=== PATIENT | male | born 1980 | race Caucasian/White ===

== ENCOUNTER 2018-12-05 15:31 | Emergency (ER) | payer SELFPAY ==
--- NOTE | 2018-12-05 16:25 | ED ---
Complex/Multi-Sys Presentation - HPI Summary HPI Summary: A 38 y/o male brought in by [facility] ambulance presents to [facility] with a chief complaint of heat exhaustion today. The patient has been at [employer] yesterday and today and has been out in the sun. He said that he felt OK this morning, but got to hot and had to go into the shade. He says that he had 8-10 beers yesterday and 1/2 of a beer today. He also reports smoking marijuana, but denies any other drugs. He reports some SOB from smoking marijuana, saying that sometimes it is hard to take a breath, and he reports a Hx of asthma. He rates his pain as a 0/10 in severity. He denies any CP, palpitations, vomiting or abdominal pain. He says that he is starting to get back a little bit of energy, but he is still weak. - History Of Current Complaint Chief Complaint: EDExposureHeatCold Time Seen by Provider: 12/05/18 16:04 Hx Obtained From: Patient Onset/Duration: Sudden Onset, Lasting Hours, Still Present Timing: Constant, Hours Severity Currently: None Severity Initially: Mild Location: Negative Character: Unable To Describe Aggravating Factor(s): nothing Alleviating Factor(s): nothing Associated Signs And Symptoms: Positive: SOB. Negative: Chest Pain, Palpitations, Vomiting, Abdominal Pain, Fever - Allergies/Home Medications Allergies/Adverse Reactions: Allergies Allergy/AdvReac Type Severity Reaction Status Date / Time No Known Allergies Allergy Verified 07/23/15 16:53 Home Medications: Home Medications NK [No Home Medications Reported] 12/05/18 [History Confirmed 12/05/18] PMH/Surg Hx/FS Hx/Imm Hx Respiratory History: Reports: Hx Asthma Sensory History: Denies: Hx Deafness EENT History: Denies: Hx Deafness Infectious Disease History: No Infectious Disease History: Denies: Traveled Outside the [place] in Last 30 Days - Family History Known Family History: Positive: None - Social History Alcohol Use: Weekly Alcohol Amount: recently quit Substance Use Type: Reports: Marijuana Substance Use Comment - Amount & Last Used: recently quit Smoking Status (MU): Never Smoked Tobacco Review of Systems Negative: Fever Negative: Palpitations, Chest Pain Positive: Shortness Of Breath Negative: Abdominal Pain, Vomiting Positive: Weakness Psychological: Other - positive: EtOH use out in the sun All Other Systems Reviewed And Are Negative: Yes Physical Exam - Summary Physical Exam Summary: GENERAL: Patient is a well-developed and nourished M who is lying comfortable in the stretcher. Patient is not in any acute respiratory distress. HEAD AND FACE: Normocephalic EYES: PERRLA, EOMI x 2. EARS: Hearing grossly intact. MOUTH: Oropharynx within normal limits. NECK: Supple, trachea is midline, no adenopathy, no JVD, no carotid bruit. CHEST: Symmetric, no tenderness at palpation LUNGS: Clear to auscultation bilaterally. No wheezing or crackles. CVS: Regular rate and rhythm, S1 and S2 present, no murmurs or gallops appreciated. ABDOMEN: Soft, non-tender. Bowel sounds are normal. No abnormal abdominal pulsations. EXTREMITIES: Full ROM in all major joints, no edema, no cyanosis or clubbing. NEURO: Alert and oriented x 3. No acute neurological deficits. Speech is normal and follows commands. SKIN: Dry and warm Triage Information Reviewed: Yes Vital Signs On Initial Exam: Initial Vitals Temp Pulse Resp BP Pulse Ox 99.1 F 92 8 136/80 100 12/05/18 15:43 12/05/18 15:43 12/05/18 15:43 12/05/18 15:43 12/05/18 15:43 Vital Signs Reviewed: Yes Diagnostics - Vital Signs Vital Signs Temp Pulse Resp BP Pulse Ox 12/05/18 15:43 99.1 F 92 8 136/80 100 - Laboratory Result Diagrams: 12/05/18 16:35 12/05/18 16:35 Lab Statement: Any lab studies that have been ordered have been reviewed, and results considered in the medical decision making process. - EKG 16:42 Cardiac Rate: NL - 82 bpm EKG Rhythm: Sinus Rhythm Summary of EKG Findings: EKG at 16:42 showed NSR at 82 bpm, benign early repolarization. Re-Evaluation - Re-Evaluation First Eval Re-Evaluation Time: 19:18 Change: Improved Comment: Pt is feeling much better now. Complex Multi-Symp Course/Dx Course Of Treatment: A 38 y/o male brought in by [facility] ambulance presents to [facility] with a chief complaint of heat exhaustion today. The physical exam was unremarkable. EKG at 16:42 showed NSR at 82 bpm, benign early repolarization. Blood work chemistries urine and toxicology obtained and are WNL. In the ED course the patient was given sodium chloride IV. I discussed results with patient, and he reports feeling better. He is hemodynamically stable and safe for discharge. Strict return precautions given and he will otherwise follow up with his PCP. - Diagnoses Provider Diagnoses: Marijuana use, Malaise, Heat exhaustion Discharge - Sign-Out/Discharge Documenting (check all that apply): Patient Departure - DC Patient Received Moderate/Deep Sedation with Procedure: No - Discharge Plan Condition: Stable Disposition: HOME Patient Education Materials: Heat Exhaustion (DC) Referrals: [facility] [Outside] (1-3 days) Additional Instructions: Follow up with your primary care physician in 1-3 days. RETURN TO THE EMERGENCY DEPARTMENT FOR CHANGING OR WORSENING SYMPTOMS. - Billing Disposition and Condition Condition: STABLE Disposition: Home - Attestation Statements Document Initiated by [place]: Yes Documenting Scribe: Ruy Thomas Provider For Whom Scribe is Documenting (Include Credential): Davidson Pritchett MD Scribe Attestation: IRuy, scribed for Davidson Pritchett MD on 12/06/18 at 1101. Scribe Documentation Reviewed: Yes Provider Attestation: The documentation as recorded by the Ruy hernandez accurately reflects the service I personally performed and the decisions made by , Narcisa Pritchett MD Status of Scribe Document: Viewed
[2018-12-05] MEDS: NS 0.9% 1000 ML** 2,000 ML IV ONE (16:30)
[2018-12-05 16:43] LABS: ABS Eosinophils 0.2 10^3/ul (0-0.6); ABS Lymphocytes 0.8 10^3/ul (1.0-4.8); ABS Monocytes 0.5 10^3/ul (0-0.8); ABS Neutrophils 12.4 10^3/ul (1.5-7.7); Eosinophil % 1.1 %; Hematocrit 43 % (42-52); Hemoglobin 14.5 g/dL (14.0-18.0); Lymphocyte % 6.1 %; Mean Corpuscular HGB Conc 34 g/dL (31-36); Mean Corpuscular Hemoglobin 30 pg (27-31); Mean Corpuscular Volume 90 fL (80-94); Mean Platelet Volume 8.4 fL (7.4-10.4); Platelet Count 217 10^3/uL (150-450); Red Blood Count 4.78 10^6 /uL (4.18-5.48); Red Cell Distribution Width 13 % (10-15); White Blood Count 13.9 10^3/uL (3.5-10.8)
[2018-12-05 17:03] LABS: ALT 17 U/L (7-52); AST 18 U/L (13-39); Albumin 4.5 g/dL (3.2-5.2); Albumin/Globulin Ratio 1.7 (1-3); Alkaline Phosphatase 62 U/L (34-104); Anion Gap 9 mmol/L (2-11); BUN/Creatinine Ratio 12.4 (8-20); Blood Urea Nitrogen 12 mg/dL (6-24); CO2 Carbon Dioxide 23 mmol/L (22-32); Calcium 9.2 mg/dL (8.6-10.3); Chloride 106 mmol/L (101-111); Creatine Kinase 197 U/L (10-223); EGFR Non-African American 87.6 (>60); Globulin 2.6 g/dL (2-4); Glucose 123 mg/dL (70-100); Potassium 3.7 mmol/L (3.5-5.0); Sodium 138 mmol/L (135-145); Total Protein 7.1 g/dL (6.4-8.9)
[2018-12-05 17:07] LABS: Urine Appearance Clear; Urine Bilirubin Negative (Negative); Urine Blood Negative (Negative); Urine Color Yellow; Urine Glucose Negative (Negative); Urine Ketones Negative (Negative); Urine Nitrite Negative (Negative); Urine Protein Negative (Negative); Urine Specific Gravity 1.005 (1.010-1.030); Urine Urobilinogen Negative (Negative)
[2018-12-05 17:17] LABS: Urine Benzodiazepine Screen None Detected (None Detect); Urine Opiates Screen None Detected (None Detect)
[2018-12-05 17:23] LABS: Acetaminophen < 15 mcg/mL; Alcohol < 10 mg/dL (<10); Salicylate < 2.50 mg/dL (<30)
[2018-12-05 17:37] LABS: TSH (Thyroid Stimulating Horm) 2.25 mcIU/mL (0.34-5.60)
[2018-12-05 19:24] VITALS: BP 119/60
== END 2018-12-05 19:36 | disposition home or self-care (01) ==
LOC: ED 15:31
DX: T67.5XXA Heat exhaustion, unspecified, initial encounter (principal); F12.90 Cannabis use, unspecified, uncomplicated; R53.81 Other malaise; X58.XXXA Exposure to other specified factors, initial encounter; Y92.9 Unspecified place or not applicable; J45.909 Unspecified asthma, uncomplicated; Z87.891 Personal history of nicotine dependence
CPT/HCPCS: 36415; 80053; 80307; 80320; 80329; 81003; 82550; 83605; 84443; 84484; 85025; 93005; 96360; 96361; 99284; G0480